=== PATIENT | female | born 1955 | race Hispanic/Latino ===

== ENCOUNTER 2020-10-30 16:33 | Emergency (ER) | payer SELFPAY ==
[~2020-10-30 16:33] MED LIST: Iopamidol 370 76% 100 ML VIAL ONE
[2020-10-30] MEDS ORDERED: Acetaminophen 500 MG TAB ONE (17:03)
[2020-10-30] MEDS ORDERED: Ondansetron ODT 4 MG TAB ONE (17:03)
[2020-10-30 17:43] LABS: #Lymphocytes 1.2 thou/uL (1.20-3.40); #Monocytes 0.2 thou/uL (0.11-0.59); #Neutrophils 6.6 thou/uL (1.40-6.50); %Basophils 0.5 % (0.0-1.0); %Eosinophils 0.1 % (0.0-10.0); %Lymphocytes 14.9 % (21.0-51.0); %Monocytes 2.4 % (0.0-10.0); %Neutrophils 82.2 % (42.0-75.0); Hemoglobin 15.9 g/dL (12.0-16.0); Mean Corpuscular HGB CONC 33.7 g/dL (32.0-36.0); Mean Corpuscular Hemoglobin 31.3 pg (27.0-31.0); Mean Corpuscular Volume 92.9 fL (78.0-98.0); Mean Platelet Volume 6.6 fL (7.4-10.4); Platelet Count 259 thou/uL (130-400); RBC Distribution Width 11.6 % (11.5-14.5); Red Blood Cell (RBC) Count 5.07 mill/uL (4.20-5.40)
[2020-10-30 18:13] LABS: ALT (SGPT) 41 U/L (8-55); AST (SGOT) 63 U/L (5-34); Albumin 4.2 g/dL (3.4-4.8); Alkaline Phosphatase 110 U/L (40-110); Anion Gap 14 mmol/L (10-20); BUN (Urea Nitrogen) 7 mg/dL (9.8-20.1); Bilirubin, Total 0.3 mg/dL (0.2-1.2); Calc. Creatinine Clearance 0 mL/min (70-130); Calcium 8.4 mg/dL (7.8-10.44); Carbon Dioxide 25 mmol/L (23-31); Chloride 96 mmol/L (98-107); Globulin 4.2 g/dL (2.4-3.5); Glucose 136 mg/dL (80-115); Lipase 101 U/L (8-78); Potassium 4.2 mmol/L (3.5-5.1); Protein, Total 8.4 g/dL (6.0-8.3); Sodium 131 mmol/L (136-145)
--- NOTE | 2020-10-30 18:57 | CT ---
CT ABDOMEN AND PELVIS PERFORMED WITH CONTRAST ENHANCEMENT: 10/30/20 HISTORY: Abdominal pain, nausea, and fever. There are some small peripheral infiltrates seen not entirely typical for but would raise the possibi lity of COVID pneumonia. There is also atelectatic changes in the lung bases. The liver, spleen, panc reas, and gallbladder regions all appear unremarkable. Right and left adrenal glands and right and left kidneys are normal in size. There is no significant periaortic adenopathy. Just slightly inferior to the level of the second to third portion of the duod enum and anterior to the IVC is a dense area of more dystrophic type calcifications. No soft tissue m ass associated with this. This is not felt to be of any acute consequence. CT OF PELVIS PERFORMED WITH CONTRAST ENHANCEMENT: The appendix region is unremarkable. No adenopathy, mass or free fluid. Review of osseous structures shows mild arthritic change of the spine. IMPRESSION: 1. Some ground glass infiltrates in both lung bases. This is suspicious for COVID pneumonia. 2. No acute abnormalities of the abdomen or pelvis. POS: OFF
[2020-10-30 19:27] LABS: Bilirubin Negative (Negative); Blood, Urine Negative (Negative); Clarity Clear (Clear); Glucose, Urine (Dipstick) Normal (Negative); Ketone, Urine Trace mg/dL (Negative); Leukocyte Negative Leu/uL (Negative); Nitrite Negative (Negative); Protein, Urine (Dipstick) Negative (Neg-Trace); Urobilinogen Normal mg/dL (Less than 2); pH, Urine 6.5 (5.0-9.0)
[2020-10-30 19:29] LABS: Specific Gravity, Urine Greater than 1.060 (1.002-1.036)
[2020-10-31 02:24] LABS: SARS-CoV-2 MS2 Positive; SARS-CoV-2 N Gene Positive; SARS-CoV-2 S Gene Positive; SARS-CoV-2 by NAA DETECTED (NotDetected); SARS-CoV-2 orf1ab Positive
== END 2020-10-30 19:45 | disposition home or self-care (01) ==
LOC: ERS 16:33 → EDBD 16:33 → ERS 19:45
DX: U07.1 COVID-19 (principal); I10 Essential (primary) hypertension; Z79.82 Long term (current) use of aspirin; Z79.899 Other long term (current) drug therapy
CPT/HCPCS: 74177; 80053; 81003; 83690; 85025; 87635; Q0162; Q9967; U0003

== ENCOUNTER 2020-11-08 17:03 | Inpatient (IN) | payer SELFPAY ==
[~2020-11-08 17:03] MED LIST changes: -Iopamidol 370 76% 100 ML VIAL ONE; +Iopamidol-370 76% 500 ML 1 ML ONE
[2020-11-08] MEDS ORDERED: Dexamethasone 10 MG/ML VIAL ONE (17:23)
[2020-11-08 18:02] LABS: #Lymphocytes 2.1 thou/uL (1.20-3.40); #Monocytes 0.4 thou/uL (0.11-0.59); #Neutrophils 8.5 thou/uL (1.40-6.50); %Basophils 0.1 % (0.0-1.0); %Eosinophils 0.3 % (0.0-10.0); %Lymphocytes 18.9 % (21.0-51.0); %Monocytes 3.3 % (0.0-10.0); %Neutrophils 77.4 % (42.0-75.0); Hemoglobin 15.1 g/dL (12.0-16.0); Mean Corpuscular HGB CONC 34.7 g/dL (32.0-36.0); Mean Corpuscular Hemoglobin 31.8 pg (27.0-31.0); Mean Corpuscular Volume 91.6 fL (78.0-98.0); Mean Platelet Volume 6.1 fL (7.4-10.4); Platelet Count 675 thou/uL (130-400); RBC Distribution Width 11.6 % (11.5-14.5); Red Blood Cell (RBC) Count 4.76 mill/uL (4.20-5.40)
--- NOTE | 2020-11-08 18:12 | RAD ---
XR Chest 1 View Portable HISTORY: Cough, shortness of breath COMPARISON: None FINDINGS: The heart size normal. The lungs are hypoexpanded with patchy ill-defined opacities bilater ally, right greater than left. No pneumothoraces or pleural effusions are seen. IMPRESSION: Possibility of COVID 19 pneumonia should be considered.
[2020-11-08 18:23] LABS: ALT (SGPT) 40 U/L (8-55); AST (SGOT) 59 U/L (5-34); Albumin 3.5 g/dL (3.4-4.8); Alkaline Phosphatase 92 U/L (40-110); Anion Gap 16 mmol/L (10-20); BUN (Urea Nitrogen) 7 mg/dL (9.8-20.1); Bilirubin, Total 0.6 mg/dL (0.2-1.2); Calc. Creatinine Clearance 0 mL/min (70-130); Carbon Dioxide 26 mmol/L (23-31); Chloride 96 mmol/L (98-107); Globulin 3.4 g/dL (2.4-3.5); Glucose 164 mg/dL (80-115); Potassium 4.2 mmol/L (3.5-5.1); Protein, Total 6.9 g/dL (6.0-8.3); Sodium 134 mmol/L (136-145)
[2020-11-08 20:58] LABS: Bilirubin Negative (Negative); Blood, Urine Negative (Negative); Clarity Clear (Clear); Glucose, Urine (Dipstick) Normal (Negative); Ketone, Urine Negative (Negative); Leukocyte Negative Leu/uL (Negative); Nitrite Negative (Negative); Protein, Urine (Dipstick) Negative (Neg-Trace); Specific Gravity, Urine 1.032 (1.002-1.036); Urobilinogen Normal mg/dL (Less than 2); pH, Urine 7.5 (5.0-9.0)
--- NOTE | 2020-11-08 21:08 | CT ---
CT ABDOMEN AND PELVIS WITH IV CONTRAST: History: Epigastric pain. Nausea. Comparison: 10-30-2020 FINDINGS: There has been interval worsening of patchy ground glass opacities and consolidation in the visualize d lower lung porras since the previous study. No calcified gallstones are seen. The liver, spleen, pancreas, adrenal glands, kidneys are normal. No free air, free fluid, or lymphadenopathy is seen in the abdomen or pelvis. The dystrophic calcificat ions in the right paracaval region inferior to the right kidney is stable. There are vascular calcifi cations without evidence of aneurysmal dilatation or the abdominal aorta. The uterus is present. Mild arthritic changes in the spine are redemonstrated. A normal appearing appendix is seen. The small bowel loops are not abnormally dilated. There is mild colonic diverticulosis without diverticulitis. IMPRESSION: 1. Interval worsening of pneumonia (likely Covid-19). 2. No evidence of acute process in the abdomen or pelvis. POS: OFF
[2020-11-08 21:29] LABS: Lactic Acid 1.5 mmol/L (0.5-2.2)
--- NOTE | 2020-11-08 22:24 | PDOC.HHP ---
Hospitalist HPI - History of Present Illness Shortness of breath History of Present Illness: This is a 65-year-old female patient with a history of hypertension who presents with ongoing shortness of breath and abdominal pain for about a week. She was diagnosed Covid positive on 10/30/2020. She is [place]-speaking and required a telemetry project asst. Of note patient was seen here on 10/30/2020 after having 2 days of abdominal pain nausea vomiting and fever with loss of appetite and taste. She had 2 family members diagnosed with Covid positive. On the day she was also positive. She was however managed in discharge from the ED with supportive care to follow-up with PCP. Since going home however she has had worsening cough and progressive shortness of breath as well as abdominal pain which has not been resolving. She returned today complaining of abdominal pain and cough which would not cease. At presentation her blood pressure was 124/84, respiratory rate 28, pulse 84, saturating 93% on 3 L oxygen. She eventually desaturated and required high flow oxygen to maintain his saturation. He had labs showed leukocytosis of 11.0, no bands, globin 15.1 and platelets 6/5. She had a mild hyponatremia of 134, lactate 2.3. Chest x-ray showed patchy ill-defined opacities bilaterally consistent with Covid. Abdominal CT showed no evidence of acute abdominal or pelvic processes. She received dexamethasone and 1 L normal saline. Hospitalist team was consulted to admit Hospitalist ROS - Review of Systems Constitutional: reports: fever, weakness, malaise. denies: chills, sweats Respiratory: reports: cough, shortness of breath, SOB with excertion. denies: hemoptysis Cardiovascular: denies: chest pain, palpitations, orthopnea, paroxysmal noc. dyspnea Gastrointestinal: reports: abdominal pain. denies: nausea, vomiting, diarrhea Genitourinary: denies: dysuria, frequency, incontinence, hematuria Musculoskeletal: denies: neck pain, shoulder pain Neurological: denies: weakness, numbness, incoordination All other systems reviewed; all pertinent +/- noted in HPI/Subj - Medication Medications: Medications: Currently refer to ambulatory list. Allergies: Penicillin Hospitalist History - Past Medical History Cardiac: reports: HTN - Past Surgical History Past Surgical History: reports: - Family History Family History: reports: no pertinent history - Social History Smoking Status: Never smoker Alcohol: reports: None Living Situation: With Family - Exam General Appearance: awake alert General - other findings: In bed, intermittent coughing. Eye: PERRL, anicteric sclera Heart: RRR, no murmur, no gallops, no rubs Respiratory: wheezes Respiratory - other findings: Adequate air entry bilaterally. On high flow nasal cannula Gastrointestinal: soft, non-tender, non-distended, normal bowel sounds Extremities: no cyanosis, no clubbing, no edema Neurological: cranial nerve grossly intact, no focal deficits Psychiatric: normal affect, normal behavior, A&O x 3 Hospitalist Results - Labs Result Diagrams: 11/08/20 17:24 11/08/20 17:24 Lab results: WBC 11.0 thou/uL (4.8-10.8) H 11/08/20 17:24 Hgb 15.1 g/dL (12.0-16.0) 11/08/20 17:24 Hct 43.6 % (36.0-47.0) 11/08/20 17:24 MCV 91.6 fL (78.0-98.0) 11/08/20 17:24 Plt Count 675 thou/uL (130-400) H 11/08/20 17:24 Neutrophils % 77.4 % (42.0-75.0) H 11/08/20 17:24 Sodium 134 mmol/L (136-145) L 11/08/20 17:24 Potassium 4.2 mmol/L (3.5-5.1) 11/08/20 17:24 Chloride 96 mmol/L (98-107) L 11/08/20 17:24 Carbon Dioxide 26 mmol/L (23-31) 11/08/20 17:24 BUN 7 mg/dL (9.8-20.1) L 11/08/20 17:24 Creatinine 0.62 mg/dL (0.6-1.1) 11/08/20 17:24 Glucose 164 mg/dL (80-115) H 11/08/20 17:24 Lactic Acid 1.5 mmol/L (0.5-2.2) 11/08/20 20:53 Calcium 8.0 mg/dL (7.8-10.44) 11/08/20 17:24 Total Bilirubin 0.6 mg/dL (0.2-1.2) 11/08/20 17:24 AST 59 U/L (5-34) H 11/08/20 17:24 ALT 40 U/L (8-55) 11/08/20 17:24 Alkaline Phosphatase 92 U/L (40-110) 11/08/20 17:24 C-Reactive Protein 6.50 mg/dL (= or < 0.5) H 11/08/20 17:24 Serum Total Protein 6.9 g/dL (6.0-8.3) 11/08/20 17:24 Albumin 3.5 g/dL (3.4-4.8) 11/08/20 17:24 Lipase 140 U/L (8-78) H 11/08/20 17:24 Urine Ketones Negative mg/dL (Negative) 11/08/20 20:43 Urine Blood Negative (Negative) 11/08/20 20:43 Urine Nitrite Negative (Negative) 11/08/20 20:43 Ur Leukocyte Esterase Negative Jose/uL (Negative) 11/08/20 20:43 Hospitalist H&P A/P - Plan Plan: This is a 65-year-old female patient history of hypertension diagnosed Covid about 10 days ago presenting with worsening shortness of breath, acute hypoxic respiratory failure and abdominal pain. Acute hypoxic respiratory failure Likely secondary to Covid pneumonia Oxygen therapy as needed Pneumonia due to Covid Start vitamin C and zinc Steroids Likely out of the window for remdesivir Consider convalescent plasma in a.m. Check D-dimer, CRP and ferritin Possible ID consult. Abdominal pain No etiology at the moment Lipase slightly elevated however no CT evidence of pancreatitis Examination also not suggestive We will continue monitoring. Lactic acidosis Lactate 2.3 reduce to 1.5 Possibly due to hypoxemia No clear indication of sepsis at the moment Blood cultures drawn however no antibiotics are started Monitor VT prophylaxisLovenox CODE STATUSfull
[2020-11-08 23:07] LABS: Lactic Acid 1.2 mmol/L (0.5-2.2)
[2020-11-09 02:00] VITALS: BMI 25.0
[2020-11-09] MEDS ORDERED: Enoxaparin Sodium 40 MG/0.4 ML SYRINGE SC SCH ×2 (02:15→09:00)
[2020-11-09 06:34] LABS: #Lymphocytes 1.6 thou/uL (1.20-3.40); #Monocytes 0.2 thou/uL (0.11-0.59); #Neutrophils 5.6 thou/uL (1.40-6.50); %Basophils 0.1 % (0.0-1.0); %Eosinophils 0.1 % (0.0-10.0); %Lymphocytes 21.2 % (21.0-51.0); %Monocytes 2.8 % (0.0-10.0); %Neutrophils 75.8 % (42.0-75.0); Hemoglobin 13.6 g/dL (12.0-16.0); Mean Corpuscular HGB CONC 33.5 g/dL (32.0-36.0); Mean Corpuscular Hemoglobin 30.5 pg (27.0-31.0); Platelet Count 646 thou/uL (130-400); RBC Distribution Width 11.4 % (11.5-14.5); Red Blood Cell (RBC) Count 4.44 mill/uL (4.20-5.40); White Blood Cell (WBC) Count 7.4 thou/uL (4.8-10.8)
[2020-11-09 06:51] LABS: Anion Gap 15 mmol/L (10-20); BUN (Urea Nitrogen) 7 mg/dL (9.8-20.1); Calc. Creatinine Clearance 93 mL/min (70-130); Calcium 8.4 mg/dL (7.8-10.44); Carbon Dioxide 22 mmol/L (23-31); Chloride 102 mmol/L (98-107); Glucose 128 mg/dL (80-115); Sodium 135 mmol/L (136-145)
[2020-11-09] MEDS: Dexamethasone 4 mg/ml Vial SLOW IVP SCH (08:28)
[2020-11-09] MEDS: Cholecalciferol (Vitamin D3) 400 UNITS TAB PO SCH (08:28)
[2020-11-09] MEDS: Ascorbic Acid 500 mg Chewable Tablet PO SCH (08:28)
[2020-11-09] MEDS: Guaifenesin DM 100-10/5 ML UDCUP PO PRN ×2 (11:53→21:08)
--- NOTE | 2020-11-09 14:07 | PDOC.HOSPP ---
- Subjective Encounter Date: 11/09/20 Encounter Time: 14:06 Subjective: Patient is a 65-year-old female who was admitted to the hospital for worsening respiratory symptoms. She was diagnosed with COVID-19 pneumonia about 10 days ago. Prior to that she was sick for about a week. She has multiple family members that was diagnosed with Covid recently. She was observed in the emergency room on the eighth of this month and discharged home but she started feeling poorly prompting her to come back to the hospital. She is on high flow today when I arrived to visit with her. She is [id number] and I did use the [employer] [facility] to discuss with her. She does not meet criteria for rem desivir. We will give her convalescent plasma. She will continue on the high flow nasal cannula and wean off as tolerated. - Objective Vital Signs & Weight: Vital Signs (12 hours) Temp Pulse Resp BP BP Pulse Ox 11/09/20 12:30 98.0 F 84 16 97/60 94 L 11/09/20 10:55 22 H 92 L 11/09/20 09:30 97.7 F 89 35 H 105/67 88 L 11/09/20 08:00 91 L 11/09/20 04:00 97.6 F 83 20 116/72 91 L 11/09/20 02:18 98.3 F 89 20 114/73 92 L Weight Weight 120 lb Result Diagrams: 11/09/20 06:09 11/09/20 06:09 Radiology Reviewed by me: Yes EKG Reviewed by me: Yes Hospitalist ROS - Review of Systems Constitutional: reports: weakness, malaise Gastrointestinal: reports: nausea Neurological: reports: weakness - Medication Medications: Active Medications Generic Name Dose Route Start Last Admin Trade Name Michealq PRN Reason Stop Dose Admin Ascorbic Acid 1,000 mg 11/09/20 09:00 11/09/20 08:28 Ascorbic Acid 500 Mg Chewable Tablet PO 1,000 mg DAILY DILSHAD Administration Cholecalciferol 400 units 11/09/20 09:00 11/09/20 08:28 Cholecalciferol (Vitamin D3) 400 Units Tab PO 400 units DAILY DILSHAD Administration Dexamethasone 8 mg 11/09/20 09:00 11/09/20 08:28 Dexamethasone 4 Mg/Ml Vial SLOW IVP 8 mg DAILY DILSHAD Administration Guaifenesin/Dextromethorphan 15 ml 11/09/20 11:01 11/09/20 11:53 Guaifenesin Dm 100-10/5 Ml Udcup PO 15 ml Q4H PRN Administration Cough - Exam General Appearance: awake alert, ill appearing Eye: PERRL, anicteric sclera ENT: normocephalic atraumatic, no oropharyngeal lesions Neck: supple, symmetric, no JVD Heart: RRR, no murmur, no gallops, no rubs Respiratory: CTAB, no wheezes, no rales, no ronchi, normal chest expansion Gastrointestinal: soft, non-tender, non-distended, normal bowel sounds Psychiatric: normal affect, normal behavior, A&O x 3 Hosp A/P (1) Acute respiratory failure with hypoxia Code(s): J96.01 - ACUTE RESPIRATORY FAILURE WITH HYPOXIA Status: Acute (2) Pneumonia due to COVID-19 virus Code(s): U07.1 - COVID-19; J12.82 - PNEUMONIA DUE TO CORONAVIRUS DISEASE 2019 Status: Acute - Plan 11/09/2020. Patient is admitted with COVID-19 pneumonia complicated by respiratory failure. We will continue supportive care with high flow nasal cannula. She is on steroid which I will continue as well. We will give her a dose of convalescent plasma. She does not meet criteria for remdesivir.
[2020-11-09] MEDS: Enoxaparin Sodium 40 MG/0.4 ML SYRINGE SC SCH (20:16)
[2020-11-10 06:51] LABS: #Lymphocytes 2.4 thou/uL (1.20-3.40); #Monocytes 0.8 thou/uL (0.11-0.59); #Neutrophils 9.8 thou/uL (1.40-6.50); %Eosinophils 0.1 % (0.0-10.0); %Lymphocytes 18.6 % (21.0-51.0); %Monocytes 6.4 % (0.0-10.0); %Neutrophils 74.9 % (42.0-75.0); Hemoglobin 13.7 g/dL (12.0-16.0); Mean Corpuscular HGB CONC 34.4 g/dL (32.0-36.0); Mean Corpuscular Hemoglobin 31.5 pg (27.0-31.0); Mean Corpuscular Volume 91.6 fL (78.0-98.0); Platelet Count 753 thou/uL (130-400); RBC Distribution Width 11.4 % (11.5-14.5); Red Blood Cell (RBC) Count 4.34 mill/uL (4.20-5.40)
[2020-11-10 07:06] LABS: Anion Gap 16 mmol/L (10-20); BUN (Urea Nitrogen) 11 mg/dL (9.8-20.1); Calc. Creatinine Clearance 88 mL/min (70-130); Calcium 8.6 mg/dL (7.8-10.44); Carbon Dioxide 23 mmol/L (23-31); Chloride 104 mmol/L (98-107); Glucose 91 mg/dL (80-115); Potassium 3.5 mmol/L (3.5-5.1); Sodium 139 mmol/L (136-145)
[2020-11-10] MEDS: Dexamethasone 4 mg/ml Vial SLOW IVP SCH (08:20)
[2020-11-10] MEDS: Enoxaparin Sodium 40 MG/0.4 ML SYRINGE SC SCH ×2 (08:21→21:17)
[2020-11-10] MEDS: Cholecalciferol (Vitamin D3) 400 UNITS TAB PO SCH (08:21)
[2020-11-10] MEDS: Ascorbic Acid 500 mg Chewable Tablet PO SCH (08:21)
[2020-11-10] MEDS: Guaifenesin DM 100-10/5 ML UDCUP PO PRN ×2 (10:55→16:57)
[2020-11-10] MEDS ORDERED: Azithromycin 250 MG TAB PO SCH (14:15)
--- NOTE | 2020-11-10 14:16 | PDOC.HOSPP ---
- Subjective Encounter Date: 11/10/20 Encounter Time: 14:12 Subjective: I saw and evaluated Ms. Israel today at the bedside. Is Sinhala-speaking woman with COVID-19 pneumonia was admitted for worsening respiratory failure. She remains on high flow nasal cannula and seems to be doing relatively well. She is having more mucopurulent sputum with her cough today. I will send her sputum for Gram stain and culture. I am going to start her on doxycycline and azithromycin. She did receive convalescent plasma but she is out of the window for remdesivir. - Objective Vital Signs & Weight: Vital Signs (12 hours) Temp Pulse Resp BP BP Pulse Ox 11/10/20 12:32 97.8 F 71 22 H 113/72 98 11/10/20 11:24 92 L 11/10/20 11:05 20 98 11/10/20 08:20 20 94 L 11/10/20 08:00 98.2 F 79 24 H 102/67 88 L 11/10/20 05:47 97.7 F 72 18 118/69 95 Weight Weight 120 lb I&O: 11/09/20 11/10/20 11/11/20 06:59 06:59 06:59 Intake Total 240 Output Total 700 Balance -460 Result Diagrams: 11/10/20 05:59 11/10/20 05:59 Radiology Reviewed by me: Yes EKG Reviewed by me: Yes Hospitalist ROS - Review of Systems Constitutional: reports: sweats, weakness Respiratory: reports: cough, shortness of breath, SOB with excertion, sputum Gastrointestinal: reports: nausea - Medication Medications: Active Medications Generic Name Dose Route Start Last Admin Trade Name Melody PRN Reason Stop Dose Admin Ascorbic Acid 1,000 mg 11/09/20 09:00 11/10/20 08:21 Ascorbic Acid 500 Mg Chewable Tablet PO 1,000 mg DAILY DILSHAD Administration Cholecalciferol 400 units 11/09/20 09:00 11/10/20 08:21 Cholecalciferol (Vitamin D3) 400 Units Tab PO 400 units DAILY DILSHAD Administration Dexamethasone 8 mg 11/09/20 09:00 11/10/20 08:20 Dexamethasone 4 Mg/Ml Vial SLOW IVP 8 mg DAILY DILSHAD Administration Enoxaparin Sodium 40 mg 11/09/20 21:00 11/10/20 08:21 Enoxaparin Sodium 40 Mg/0.4 Ml Syringe SC 40 mg 0900,2100 DILSHAD Administration Guaifenesin/Dextromethorphan 15 ml 11/09/20 11:01 11/10/20 10:55 Guaifenesin Dm 100-10/5 Ml Udcup PO 15 ml Q4H PRN Administration Cough - Exam General Appearance: NAD, awake alert, ill appearing Eye: PERRL, anicteric sclera ENT: normocephalic atraumatic, no oropharyngeal lesions Neck: supple, symmetric, no JVD, no thyromegaly, no lymphadenopathy Heart: RRR, no murmur, no gallops, no rubs, normal peripheral pulses Respiratory: CTAB, no wheezes, no rales, no ronchi, normal chest expansion Gastrointestinal: soft, non-tender, non-distended, normal bowel sounds Neurological: cranial nerve grossly intact, normal sensation to touch Psychiatric: normal affect, normal behavior, A&O x 3 Hosp A/P (1) Acute respiratory failure with hypoxia Code(s): J96.01 - ACUTE RESPIRATORY FAILURE WITH HYPOXIA Status: Acute (2) Pneumonia due to COVID-19 virus Code(s): U07.1 - COVID-19; J12.82 - PNEUMONIA DUE TO CORONAVIRUS DISEASE 2019 Status: Acute - Plan old records reviewed/req, plan discussed w/ family, continue antibiotics, PT/OT, respiratory therapy, incentive spirometry 11/09/2020. Patient is admitted with COVID-19 pneumonia complicated by respiratory failure. We will continue supportive care with high flow nasal cannula. She is on steroid which I will continue as well. We will give her a dose of convalescent plasma. She does not meet criteria for remdesivir. 11/10/2020. Patient with COVID-19 pneumonia complicated by respiratory failure. She did receive convalescent plasma but was out of the window for remdesivir. I have started her on antibiotics and will send her sputum for culture and Gram stain.
[2020-11-11 06:15] LABS: #Basophils 0.1 thou/uL (0.0-0.2); #Lymphocytes 3.2 thou/uL (1.20-3.40); #Monocytes 0.8 thou/uL (0.11-0.59); %Eosinophils 0.1 % (0.0-10.0); %Lymphocytes 22.4 % (21.0-51.0); %Monocytes 5.7 % (0.0-10.0); %Neutrophils 70.8 % (42.0-75.0); Hemoglobin 14.1 g/dL (12.0-16.0); Mean Corpuscular Hemoglobin 30.9 pg (27.0-31.0); Mean Corpuscular Volume 90.6 fL (78.0-98.0); Mean Platelet Volume 5.6 fL (7.4-10.4); Platelet Count 823 thou/uL (130-400); RBC Distribution Width 11.6 % (11.5-14.5); Red Blood Cell (RBC) Count 4.58 mill/uL (4.20-5.40); White Blood Cell (WBC) Count 14.1 thou/uL (4.8-10.8)
[2020-11-11 06:49] LABS: Anion Gap 13 mmol/L (10-20); BUN (Urea Nitrogen) 13 mg/dL (9.8-20.1); Calc. Creatinine Clearance 88 mL/min (70-130); Calcium 8.5 mg/dL (7.8-10.44); Carbon Dioxide 24 mmol/L (23-31); Chloride 104 mmol/L (98-107); Glucose 77 mg/dL (80-115); Magnesium 2.3 mg/dL (1.6-2.6); Potassium 3.7 mmol/L (3.5-5.1); Sodium 137 mmol/L (136-145)
[2020-11-11] MEDS: Dexamethasone 4 mg/ml Vial SLOW IVP SCH (08:19)
[2020-11-11] MEDS: Cholecalciferol (Vitamin D3) 400 UNITS TAB PO SCH (08:19)
[2020-11-11] MEDS: Enoxaparin Sodium 40 MG/0.4 ML SYRINGE SC SCH ×2 (08:19→20:58)
[2020-11-11] MEDS: Ascorbic Acid 500 mg Chewable Tablet PO SCH (08:19)
[2020-11-11] MEDS: Levothyroxine Sodium 100 MCG TAB PO SCH ×2 (08:20→09:47)
[2020-11-11] MEDS: Zinc Sulfate 220 MG CAP PO SCH (08:21)
[2020-11-11] MEDS: Guaifenesin DM 100-10/5 ML UDCUP PO PRN ×2 (08:23→16:55)
--- NOTE | 2020-11-11 11:57 | PDOC.HOSPP ---
- Subjective Encounter Date: 11/11/20 Encounter Time: 11:54 Subjective: Ms. Israel remains on high flow nasal cannula. She said that she is doing a little bit better today. She was diagnosed with COVID-19 pneumonia. She was not a candidate for remdesivir when she was admitted. She did receive convalescent plasma. We will begin to wean him down on the high flow nasal cannula. - Objective Vital Signs & Weight: Vital Signs (12 hours) Temp Pulse Resp BP BP Pulse Ox 11/11/20 11:00 92 L 11/11/20 07:54 97.7 F 78 17 129/77 92 L 11/11/20 06:12 97.5 F L 69 18 112/71 94 L 11/11/20 01:31 97.7 F 69 18 124/77 94 L Weight Weight 120 lb I&O: 11/10/20 11/11/20 11/12/20 06:59 06:59 06:59 Intake Total 240 Output Total 700 Balance -460 Result Diagrams: 11/11/20 06:04 11/11/20 06:04 Radiology Reviewed by me: Yes EKG Reviewed by me: Yes Hospitalist ROS - Review of Systems Constitutional: reports: weakness, malaise Respiratory: reports: shortness of breath, SOB with excertion Gastrointestinal: reports: nausea Neurological: reports: weakness - Medication Medications: Active Medications Generic Name Dose Route Start Last Admin Trade Name Freq PRN Reason Stop Dose Admin Ascorbic Acid 1,000 mg 11/09/20 09:00 11/11/20 08:19 Ascorbic Acid 500 Mg Chewable Tablet PO 1,000 mg DAILY DILSHAD Administration Cholecalciferol 400 units 11/09/20 09:00 11/11/20 08:19 Cholecalciferol (Vitamin D3) 400 Units Tab PO 400 units DAILY DILSHAD Administration Dexamethasone 8 mg 11/09/20 09:00 11/11/20 08:19 Dexamethasone 4 Mg/Ml Vial SLOW IVP 8 mg DAILY DILSHAD Administration Enoxaparin Sodium 40 mg 11/09/20 21:00 11/11/20 08:19 Enoxaparin Sodium 40 Mg/0.4 Ml Syringe SC 40 mg 0900,2100 DILSHAD Administration Guaifenesin/Dextromethorphan 15 ml 11/09/20 11:01 11/11/20 08:23 Guaifenesin Dm 100-10/5 Ml Udcup PO 15 ml Q4H PRN Administration Cough Doxycycline Hyclate 100 mg/ 100 mls @ 100 mls/hr 11/10/20 15:00 11/11/20 04:01 Sodium Chloride IVPB 100 mls 0300,1500 DILSHAD Administration Levothyroxine Sodium 200 mcg 11/11/20 07:30 11/11/20 09:47 Levothyroxine Sodium 100 Mcg Tab PO Not Given DAILY-AC DILSHAD Sodium Chloride 10 ml 11/11/20 09:00 11/11/20 08:20 Flush - Normal Saline 10 Ml Syringe IVF 10 ml Q12HR DILSHAD Administration Zinc Sulfate 220 mg 11/11/20 09:00 11/11/20 08:21 Zinc Sulfate 220 Mg Cap PO 220 mg DAILY DILSHAD Administration - Exam General Appearance: awake alert, ill appearing Eye: PERRL, anicteric sclera ENT: normocephalic atraumatic, no oropharyngeal lesions Neck: supple, symmetric, no JVD, no thyromegaly Heart: RRR, no murmur, no gallops, no rubs, normal peripheral pulses Respiratory: no rales, normal chest expansion, normal percussion, rales, rhonchi, wheezes Gastrointestinal: soft, non-tender, non-distended, normal bowel sounds Neurological: cranial nerve grossly intact, normal sensation to touch Psychiatric: normal affect, normal behavior, A&O x 3 Hosp A/P (1) Acute respiratory failure with hypoxia Code(s): J96.01 - ACUTE RESPIRATORY FAILURE WITH HYPOXIA Status: Acute (2) Pneumonia due to COVID-19 virus Code(s): U07.1 - COVID-19; J12.82 - PNEUMONIA DUE TO CORONAVIRUS DISEASE 2019 Status: Acute - Plan 11/09/2020. Patient is admitted with COVID-19 pneumonia complicated by respiratory failure. We will continue supportive care with high flow nasal cannula. She is on steroid which I will continue as well. We will give her a dose of convalescent plasma. She does not meet criteria for remdesivir. 11/10/2020. Patient with COVID-19 pneumonia complicated by respiratory failure. She did receive convalescent plasma but was out of the window for remdesivir. I have started her on antibiotics and will send her sputum for culture and Gram stain. 11/11/2020. We will begin to wean her down on the high flow nasal cannula. Continue current care.
[2020-11-12 06:18] LABS: Anion Gap 16 mmol/L (10-20); BUN (Urea Nitrogen) 13 mg/dL (9.8-20.1); Calc. Creatinine Clearance 80 mL/min (70-130); Calcium 8.6 mg/dL (7.8-10.44); Carbon Dioxide 20 mmol/L (23-31); Chloride 105 mmol/L (98-107); Glucose 93 mg/dL (80-115); Potassium 3.6 mmol/L (3.5-5.1); Sodium 137 mmol/L (136-145)
[2020-11-12 06:43] LABS: #Lymphocytes 2.8 thou/uL (1.20-3.40); #Monocytes 1.1 thou/uL (0.11-0.59); #Neutrophils 8.5 thou/uL (1.40-6.50); %Basophils 0.2 % (0.0-1.0); %Eosinophils 0.1 % (0.0-10.0); %Lymphocytes 22.5 % (21.0-51.0); %Monocytes 8.7 % (0.0-10.0); %Neutrophils 68.5 % (42.0-75.0); Hemoglobin 14.9 g/dL (12.0-16.0); Mean Corpuscular HGB CONC 33.5 g/dL (32.0-36.0); Mean Corpuscular Hemoglobin 30.4 pg (27.0-31.0); Mean Corpuscular Volume 90.8 fL (78.0-98.0); Mean Platelet Volume 5.6 fL (7.4-10.4); Platelet Count 882 thou/uL (130-400); RBC Distribution Width 11.9 % (11.5-14.5); Red Blood Cell (RBC) Count 4.88 mill/uL (4.20-5.40); White Blood Cell (WBC) Count 12.4 thou/uL (4.8-10.8)
[2020-11-12] MEDS ORDERED: Non-Formulary Item 1 EACH (Levothyroxine Sodium [Synthroid] 200 MCG Tablet) PO SCH (07:30)
[2020-11-12] MEDS: Ascorbic Acid 500 mg Chewable Tablet PO SCH (07:47)
[2020-11-12] MEDS: Cholecalciferol (Vitamin D3) 400 UNITS TAB PO SCH (07:47)
[2020-11-12] MEDS: Zinc Sulfate 220 MG CAP PO SCH (07:47)
--- NOTE | 2020-11-12 07:47 | RAD ---
Chest one view HISTORY: Dyspnea. Follow-up. COMPARISON: 11/08/2020. FINDINGS: Cardiac silhouette is magnified by projection. Shallow inspiration accentuates pulmonary ma rkings. Mediastinum is midline. Patchy groundglass infiltrate along the periphery of the right lung and left lung base are similar in appearance to the prior study. Linear atelectasis projects over the right lung base. No evidence of pneumothorax. IMPRESSION : Multifocal infiltrates and other findings are stable.
[2020-11-12] MEDS: Enoxaparin Sodium 40 MG/0.4 ML SYRINGE SC SCH ×2 (07:48→20:39)
[2020-11-12] MEDS: Dexamethasone 4 mg/ml Vial SLOW IVP SCH ×2 (07:48→10:50)
--- NOTE | 2020-11-12 14:36 | PDOC.HOSPP ---
- Subjective Encounter Date: 11/12/20 Encounter Time: 14:34 Subjective: Patient seen and evaluated. She seems to be doing better. She does still get dyspneic with conversation and changing position in the bed. I do not believe she is ready to wean from the high flow yet but we will continue this for now. Her prognosis remains guarded. - Objective Vital Signs & Weight: Vital Signs (12 hours) Temp Pulse Resp BP BP Pulse Ox 11/12/20 12:00 98.3 F 84 15 106/71 94 L 11/12/20 08:12 88 L 11/12/20 08:00 98.1 F 89 24 H 93/60 93 L 11/12/20 05:50 97.6 F 78 18 111/74 94 L Weight Weight 120 lb I&O: 11/11/20 11/12/20 11/13/20 06:59 06:59 06:59 Output Total 140 Balance -140 Result Diagrams: 11/12/20 05:24 11/12/20 05:24 Radiology Reviewed by me: Yes EKG Reviewed by me: Yes Hospitalist ROS - Review of Systems Constitutional: reports: weakness, malaise Gastrointestinal: reports: nausea Neurological: reports: weakness - Medication Medications: Active Medications Generic Name Dose Route Start Last Admin Trade Name Freq PRN Reason Stop Dose Admin Ascorbic Acid 1,000 mg 11/09/20 09:00 11/12/20 07:47 Ascorbic Acid 500 Mg Chewable Tablet PO 1,000 mg DAILY DILSHAD Administration Cholecalciferol 400 units 11/09/20 09:00 11/12/20 07:47 Cholecalciferol (Vitamin D3) 400 Units Tab PO 400 units DAILY DILSHAD Administration Dexamethasone 8 mg 11/09/20 09:00 11/12/20 10:50 Dexamethasone 4 Mg/Ml Vial SLOW IVP 8 mg DAILY DILSHAD Administration Enoxaparin Sodium 40 mg 11/09/20 21:00 11/12/20 07:48 Enoxaparin Sodium 40 Mg/0.4 Ml Syringe SC 40 mg 0900,2100 DILSHAD Administration Guaifenesin/Dextromethorphan 15 ml 11/09/20 11:01 11/11/20 16:55 Guaifenesin Dm 100-10/5 Ml Udcup PO 15 ml Q4H PRN Administration Cough Doxycycline Hyclate 100 mg/ 100 mls @ 100 mls/hr 11/10/20 15:00 11/12/20 14:25 Sodium Chloride IVPB 100 mls 0300,1500 DILSHAD Administration Sodium Chloride 10 ml 11/11/20 09:00 11/12/20 07:48 Flush - Normal Saline 10 Ml Syringe IVF 10 ml Q12HR DILSHAD Administration Zinc Sulfate 220 mg 11/11/20 09:00 11/12/20 07:47 Zinc Sulfate 220 Mg Cap PO 220 mg DAILY DILSHAD Administration - Exam General Appearance: NAD, awake alert Eye: PERRL, anicteric sclera ENT: normocephalic atraumatic, no oropharyngeal lesions Neck: supple, symmetric, no JVD Heart: RRR, no murmur, no gallops, no rubs Respiratory: wheezes Gastrointestinal: soft, non-tender, non-distended, normal bowel sounds Neurological: cranial nerve grossly intact, normal sensation to touch, no focal deficits Psychiatric: normal affect, normal behavior, A&O x 3 Hosp A/P (1) Acute respiratory failure with hypoxia Code(s): J96.01 - ACUTE RESPIRATORY FAILURE WITH HYPOXIA Status: Acute (2) Pneumonia due to COVID-19 virus Code(s): U07.1 - COVID-19; J12.82 - PNEUMONIA DUE TO CORONAVIRUS DISEASE 2019 Status: Acute - Plan old records reviewed/req, PT/OT, respiratory therapy, incentive spirometry 11/09/2020. Patient is admitted with COVID-19 pneumonia complicated by respiratory failure. We will continue supportive care with high flow nasal cannula. She is on steroid which I will continue as well. We will give her a dose of convalescent plasma. She does not meet criteria for remdesivir. 11/10/2020. Patient with COVID-19 pneumonia complicated by respiratory failure. She did receive convalescent plasma but was out of the window for remdesivir. I have started her on antibiotics and will send her sputum for culture and Gram stain. 11/11/2020. We will begin to wean her down on the high flow nasal cannula. Continue current care. 11/12/2020. Ms. Israel remains on a high flow. She does still get dyspneic even with changing position in bed and with conversation. We will likely still live on a high flow as I do not think she will be ready to wean down today. We will continue supportive care for now. We will continue current antibiotics, steroids, vitamin C and zinc sulfate.
[2020-11-13] MEDS: Ascorbic Acid 500 mg Chewable Tablet PO SCH (08:35)
[2020-11-13] MEDS: Cholecalciferol (Vitamin D3) 400 UNITS TAB PO SCH (08:35)
[2020-11-13] MEDS: Enoxaparin Sodium 40 MG/0.4 ML SYRINGE SC SCH ×2 (08:36→20:35)
[2020-11-13] MEDS: Dexamethasone 4 mg/ml Vial SLOW IVP SCH (08:36)
[2020-11-13] MEDS: Zinc Sulfate 220 MG CAP PO SCH (08:36)
--- NOTE | 2020-11-13 13:40 | PDOC.HOSPP ---
- Subjective Encounter Date: 11/13/20 Encounter Time: 13:38 Subjective: Ms. Israel is a [place]inamese-speaking woman who is hospitalized with COVID-19 pneumonia. She is on high flow nasal cannula and is tolerating this so far. Her main complaint today appears to be reflux symptoms. I have added Pepcid to help with control. She is slowly being weaned off of the high flow. We will continue this for now and hopefully she can be weaned off within the next 48 hours. - Objective Vital Signs & Weight: Vital Signs (12 hours) Temp Pulse Resp BP Pulse Ox 11/13/20 12:14 98.2 F 85 15 108/68 99 11/13/20 08:05 98.4 F 93 14 103/67 89 L 11/13/20 07:30 90 L Weight Weight 120 lb I&O: 11/12/20 11/13/20 11/14/20 06:59 06:59 06:59 Intake Total 100 Output Total 140 Balance -140 100 Result Diagrams: 11/12/20 05:24 11/12/20 05:24 Radiology Reviewed by me: Yes EKG Reviewed by me: Yes Hospitalist ROS - Review of Systems ROS unobtainable: due to mental status Constitutional: reports: weakness, malaise Respiratory: reports: shortness of breath, SOB with excertion Neurological: reports: weakness - Medication Medications: Active Medications Generic Name Dose Route Start Last Admin Trade Name Melody PRN Reason Stop Dose Admin Ascorbic Acid 1,000 mg 11/09/20 09:00 11/13/20 08:35 Ascorbic Acid 500 Mg Chewable Tablet PO 1,000 mg DAILY DILSHAD Administration Cholecalciferol 400 units 11/09/20 09:00 11/13/20 08:35 Cholecalciferol (Vitamin D3) 400 Units Tab PO 400 units DAILY DILSHAD Administration Dexamethasone 8 mg 11/09/20 09:00 11/13/20 08:36 Dexamethasone 4 Mg/Ml Vial SLOW IVP 8 mg DAILY DILSHAD Administration Enoxaparin Sodium 40 mg 11/09/20 21:00 11/13/20 08:36 Enoxaparin Sodium 40 Mg/0.4 Ml Syringe SC 40 mg 0900,2100 DILSHAD Administration Guaifenesin/Dextromethorphan 15 ml 11/09/20 11:01 11/11/20 16:55 Guaifenesin Dm 100-10/5 Ml Udcup PO 15 ml Q4H PRN Administration Cough Doxycycline Hyclate 100 mg/ 100 mls @ 100 mls/hr 11/10/20 15:00 11/13/20 03:39 Sodium Chloride IVPB 100 mls 0300,1500 DILSHAD Administration Sodium Chloride 10 ml 11/11/20 09:00 11/13/20 08:36 Flush - Normal Saline 10 Ml Syringe IVF 10 ml Q12HR DILSHAD Administration Zinc Sulfate 220 mg 11/11/20 09:00 11/13/20 08:36 Zinc Sulfate 220 Mg Cap PO 220 mg DAILY DILSHAD Administration - Exam General Appearance: NAD, awake alert Eye: PERRL, anicteric sclera ENT: normocephalic atraumatic, no oropharyngeal lesions Neck: supple, symmetric, no JVD, no thyromegaly, no lymphadenopathy Heart: RRR, no murmur, no gallops, no rubs, normal peripheral pulses Respiratory: CTAB, no wheezes, no rales, no ronchi Gastrointestinal: soft, non-tender, non-distended, normal bowel sounds Neurological: cranial nerve grossly intact, normal sensation to touch Psychiatric: normal affect, normal behavior, A&O x 3 Hosp A/P (1) Acute respiratory failure with hypoxia Code(s): J96.01 - ACUTE RESPIRATORY FAILURE WITH HYPOXIA Status: Acute (2) Pneumonia due to COVID-19 virus Code(s): U07.1 - COVID-19; J12.82 - PNEUMONIA DUE TO CORONAVIRUS DISEASE 2019 Status: Acute - Plan 11/09/2020. Patient is admitted with COVID-19 pneumonia complicated by respiratory failure. We will continue supportive care with high flow nasal cannula. She is on steroid which I will continue as well. We will give her a dose of convalescent plasma. She does not meet criteria for remdesivir. 11/10/2020. Patient with COVID-19 pneumonia complicated by respiratory failure. She did receive convalescent plasma but was out of the window for remdesivir. I have started her on antibiotics and will send her sputum for culture and Gram stain. 11/11/2020. We will begin to wean her down on the high flow nasal cannula. Continue current care. 11/12/2020. Ms. Israel remains on a high flow. She does still get dyspneic even with changing position in bed and with conversation. We will likely still live on a high flow as I do not think she will be ready to wean down today. We will continue supportive care for now. We will continue current antibiotics, steroids, vitamin C and zinc sulfate. 11/13/2020. She is being slowly weaned down from the high flow nasal cannula. We will continue doing this. Hopefully she can be medically optimized for discharge home within the next 48 hours.
[2020-11-13] MEDS ORDERED: Famotidine/PF 20 mg/2ml Vial SLOW IVP SCH (13:45)
[2020-11-13] MEDS: Guaifenesin DM 100-10/5 ML UDCUP PO PRN (20:55)
[2020-11-14 07:38] LABS: #Lymphocytes 3.8 thou/uL (1.20-3.40); #Monocytes 0.7 thou/uL (0.11-0.59); #Neutrophils 6.6 thou/uL (1.40-6.50); %Basophils 0.4 % (0.0-1.0); %Eosinophils 0.3 % (0.0-10.0); %Lymphocytes 33.8 % (21.0-51.0); %Monocytes 6.6 % (0.0-10.0); %Neutrophils 58.8 % (42.0-75.0); Hemoglobin 14.2 g/dL (12.0-16.0); Mean Corpuscular HGB CONC 33.7 g/dL (32.0-36.0); Mean Corpuscular Hemoglobin 30.7 pg (27.0-31.0); Mean Corpuscular Volume 91.3 fL (78.0-98.0); Mean Platelet Volume 5.5 fL (7.4-10.4); Platelet Count 759 thou/uL (130-400); Red Blood Cell (RBC) Count 4.63 mill/uL (4.20-5.40); White Blood Cell (WBC) Count 11.2 thou/uL (4.8-10.8)
[2020-11-14 07:52] LABS: Anion Gap 15 mmol/L (10-20); BUN (Urea Nitrogen) 14 mg/dL (9.8-20.1); Calc. Creatinine Clearance 91 mL/min (70-130); Calcium 8.4 mg/dL (7.8-10.44); Carbon Dioxide 21 mmol/L (23-31); Chloride 105 mmol/L (98-107); Glucose 78 mg/dL (80-115); Potassium 3.6 mmol/L (3.5-5.1); Sodium 137 mmol/L (136-145)
[2020-11-14] MEDS: Ascorbic Acid 500 mg Chewable Tablet PO SCH (07:59)
[2020-11-14] MEDS: Cholecalciferol (Vitamin D3) 400 UNITS TAB PO SCH (07:59)
[2020-11-14] MEDS: Zinc Sulfate 220 MG CAP PO SCH (07:59)
[2020-11-14] MEDS: Enoxaparin Sodium 40 MG/0.4 ML SYRINGE SC SCH ×2 (08:00→21:03)
[2020-11-14] MEDS: Dexamethasone 4 mg/ml Vial SLOW IVP SCH (08:04)
[2020-11-14] MEDS ORDERED: Famotidine 20 MG TAB PO SCH (09:00)
[2020-11-14] MEDS ORDERED: Mag-Al Plus 1200 MG/1200 MG/120 MG/30 ML UDCUP PO PRN (12:49)
--- NOTE | 2020-11-14 12:51 | PDOC.HOSPP ---
- Subjective Encounter Date: 11/14/20 Encounter Time: 10:10 Subjective: Patient doing well she has some heartburn. She is little weak today.. No cough. She had a bowel movement on . She is tolerating her p.o. regular diet. [place]inamese-speaking only talked to her through the RN who speaks Surinamese. - Objective Vital Signs & Weight: Vital Signs (12 hours) Temp Pulse Resp BP Pulse Ox 11/14/20 08:54 95 11/14/20 07:30 98.8 F 70 20 110/71 96 11/14/20 04:00 97.7 F 73 20 95/60 94 L Weight Weight 120 lb I&O: 11/13/20 11/14/20 11/15/20 06:59 06:59 06:59 Intake Total 100 400 Output Total 500 Balance 100 -100 Result Diagrams: 11/14/20 07:10 11/14/20 07:10 Hospitalist ROS - Medication Medications: Active Medications Generic Name Dose Route Start Last Admin Trade Name Freq PRN Reason Stop Dose Admin Ascorbic Acid 1,000 mg 11/09/20 09:00 11/14/20 07:59 Ascorbic Acid 500 Mg Chewable Tablet PO 1,000 mg DAILY DILSHAD Administration Cholecalciferol 400 units 11/09/20 09:00 11/14/20 07:59 Cholecalciferol (Vitamin D3) 400 Units Tab PO 400 units DAILY DILSHAD Administration Dexamethasone 8 mg 11/09/20 09:00 11/14/20 08:04 Dexamethasone 4 Mg/Ml Vial SLOW IVP 8 mg DAILY DILSHAD Administration Enoxaparin Sodium 40 mg 11/09/20 21:00 11/14/20 08:00 Enoxaparin Sodium 40 Mg/0.4 Ml Syringe SC 40 mg 0900,2100 DILSHAD Administration Famotidine 20 mg 11/14/20 09:00 11/14/20 08:00 Famotidine 20 Mg Tab PO 20 mg BID DILSHAD Administration Guaifenesin/Dextromethorphan 15 ml 11/09/20 11:01 11/13/20 20:55 Guaifenesin Dm 100-10/5 Ml Udcup PO 15 ml Q4H PRN Administration Cough Doxycycline Hyclate 100 mg/ 100 mls @ 100 mls/hr 11/10/20 15:00 11/14/20 02:28 Sodium Chloride IVPB 100 mls 0300,1500 DILSHAD Administration Sodium Chloride 10 ml 11/11/20 09:00 11/14/20 08:04 Flush - Normal Saline 10 Ml Syringe IVF 10 ml Q12HR DILSHAD Administration Zinc Sulfate 220 mg 11/11/20 09:00 11/14/20 07:59 Zinc Sulfate 220 Mg Cap PO 220 mg DAILY DILSHAD Administration - Exam General Appearance: NAD, awake alert Eye: PERRL ENT: normocephalic atraumatic Neck: supple Heart: normal peripheral pulses Respiratory: normal chest expansion Gastrointestinal: soft, normal bowel sounds Neurological: cranial nerve grossly intact, no focal deficits Psychiatric: normal affect, normal behavior, A&O x 3 Hosp A/P - Plan Acute respiratory failure with hypoxia Code(s): J96.01 - ACUTE RESPIRATORY FAILURE WITH HYPOXIA Status: Acute (2) Pneumonia due to COVID-19 virus Code(s): U07.1 - COVID-19; J12.82 - PNEUMONIA DUE TO CORONAVIRUS DISEASE 2019 Status: Acute - Plan Status post convalescent plasma --She is on doxycycline dexamethasone vitamin C and zinc. --Wean her off the oxygen Generalized weakness due to Covid Ambulate as she can tolerate GERD --Protonix and MiraLAX as needed Physical therapy evaluation once she is able
[2020-11-14] MEDS ORDERED: Senokot S 8.6-50 MG TAB PO SCH (14:15)
[2020-11-14] MEDS ORDERED: Metamucil PACK PO SCH (14:15)
[2020-11-14] MEDS: Senokot S 8.6-50 MG TAB PO SCH (21:02)
[2020-11-14] MEDS: Guaifenesin DM 100-10/5 ML UDCUP PO PRN (21:23)
[2020-11-15] MEDS: Senokot S 8.6-50 MG TAB PO SCH ×2 (09:18→21:05)
[2020-11-15] MEDS: Zinc Sulfate 220 MG CAP PO SCH (09:18)
[2020-11-15] MEDS: Cholecalciferol (Vitamin D3) 400 UNITS TAB PO SCH (09:19)
[2020-11-15] MEDS: Ascorbic Acid 500 mg Chewable Tablet PO SCH (09:19)
[2020-11-15] MEDS: Dexamethasone 4 mg/ml Vial SLOW IVP SCH (09:19)
[2020-11-15] MEDS: Polyethylene Glycol 3350 17 GM Packet PO SCH (09:20)
[2020-11-15] MEDS: Enoxaparin Sodium 40 MG/0.4 ML SYRINGE SC SCH ×2 (09:20→21:04)
--- NOTE | 2020-11-15 14:52 | PDOC.HOSPP ---
- Subjective Encounter Date: 11/15/20 Encounter Time: 11:20 Subjective: Patient states that she still has some acid reflux issue. She had several bowel movement. When she just gets out of bed she is desatting. Currently 94% oxygen saturation with 3 L oxygen - Objective Vital Signs & Weight: Vital Signs (12 hours) Temp Pulse Resp BP Pulse Ox 11/15/20 08:51 94 L 11/15/20 07:46 97.9 F 81 20 96/58 L 94 L 11/15/20 05:40 98.0 F 82 18 105/63 92 L Weight Weight 120 lb I&O: 11/14/20 11/15/20 11/16/20 06:59 06:59 06:59 Intake Total 400 1220 Output Total 500 650 Balance -100 570 Result Diagrams: 11/14/20 07:10 11/14/20 07:10 Hospitalist ROS - Medication Medications: Active Medications Generic Name Dose Route Start Last Admin Trade Name Freq PRN Reason Stop Dose Admin Ascorbic Acid 1,000 mg 11/09/20 09:00 11/15/20 09:19 Ascorbic Acid 500 Mg Chewable Tablet PO 1,000 mg DAILY DILSHAD Administration Cholecalciferol 400 units 11/09/20 09:00 11/15/20 09:19 Cholecalciferol (Vitamin D3) 400 Units Tab PO 400 units DAILY DILSHAD Administration Dexamethasone 8 mg 11/09/20 09:00 11/15/20 09:19 Dexamethasone 4 Mg/Ml Vial SLOW IVP 8 mg DAILY DILSHAD Administration Enoxaparin Sodium 40 mg 11/09/20 21:00 11/15/20 09:20 Enoxaparin Sodium 40 Mg/0.4 Ml Syringe SC 40 mg 0900,2100 DILSHAD Administration Guaifenesin/Dextromethorphan 15 ml 11/09/20 11:01 11/14/20 21:23 Guaifenesin Dm 100-10/5 Ml Udcup PO 15 ml Q4H PRN Administration Cough Doxycycline Hyclate 100 mg/ 100 mls @ 100 mls/hr 11/10/20 15:00 11/15/20 03:35 Sodium Chloride IVPB 100 mls 0300,1500 DILSHAD Administration Pantoprazole Sodium 40 mg 11/15/20 09:00 11/15/20 09:19 Pantoprazole 40 Mg Tab PO 40 mg DAILY DILSHAD Administration Polyethylene Glycol 17 gm 11/15/20 09:00 11/15/20 09:20 Polyethylene Glycol 3350 17 Gm Packet PO 17 gm DAILY DILSHAD Administration Senna/Docusate Sodium 2 tab 11/14/20 21:00 11/15/20 09:18 Senokot S 8.6-50 Mg Tab PO 2 tab BID DILSHAD Administration Sodium Chloride 10 ml 11/11/20 09:00 11/15/20 09:20 Flush - Normal Saline 10 Ml Syringe IVF 10 ml Q12HR DILSHAD Administration Zinc Sulfate 220 mg 11/11/20 09:00 11/15/20 09:18 Zinc Sulfate 220 Mg Cap PO 220 mg DAILY DILSHAD Administration - Exam General Appearance: NAD, awake alert Eye: PERRL ENT: normocephalic atraumatic Neck: supple Heart: RRR Respiratory: CTAB, normal chest expansion Gastrointestinal: soft, normal bowel sounds Neurological: cranial nerve grossly intact, no focal deficits Musculoskeletal: generalized weakness Psychiatric: A&O x 3 Hosp A/P - Plan Acute respiratory failure with hypoxia Code(s): J96.01 - ACUTE RESPIRATORY FAILURE WITH HYPOXIA Status: Acute (2) Pneumonia due to COVID-19 virus Code(s): U07.1 - COVID-19; J12.82 - PNEUMONIA DUE TO CORONAVIRUS DISEASE 2019 Status: Acute - Plan Status post convalescent plasma --She is on doxycycline dexamethasone vitamin C and zinc. --Wean her off the oxygen Ambulate as she can tolerate GERD --Protonix and MiraLAX as needed Generalized weakness due to Covid Physical therapy evaluation may not be necessary as will try to ask her ambulate inside the room and will monitor her oxygen status.
[2020-11-15] MEDS: Doxycycline 100 MG CAP PO SCH (21:04)
[2020-11-15] MEDS: Guaifenesin DM 100-10/5 ML UDCUP PO PRN (21:25)
[2020-11-16] MEDS: Guaifenesin DM 100-10/5 ML UDCUP PO PRN ×2 (05:46→15:33)
[2020-11-16] MEDS: Senokot S 8.6-50 MG TAB PO SCH ×2 (09:25→20:52)
[2020-11-16] MEDS: Cholecalciferol (Vitamin D3) 400 UNITS TAB PO SCH (09:25)
[2020-11-16] MEDS: Dexamethasone 4 MG TAB PO SCH (09:25)
[2020-11-16] MEDS: Ascorbic Acid 500 mg Chewable Tablet PO SCH (09:25)
[2020-11-16] MEDS: Polyethylene Glycol 3350 17 GM Packet PO SCH (09:25)
[2020-11-16] MEDS: Enoxaparin Sodium 40 MG/0.4 ML SYRINGE SC SCH ×2 (09:25→20:44)
[2020-11-16] MEDS: Doxycycline 100 MG CAP PO SCH ×2 (09:25→20:44)
[2020-11-16] MEDS: Zinc Sulfate 220 MG CAP PO SCH (09:26)
--- NOTE | 2020-11-16 13:50 | PDOC.HOSPP ---
- Subjective Encounter Date: 11/16/20 Encounter Time: 12:28 Subjective: Patient is improving her sats 92% with 2 L oxygen by nasal cannula. Her blood pressure is systolic less than 90 this morning. - Objective Vital Signs & Weight: Vital Signs (12 hours) Temp Pulse Resp BP Pulse Ox 11/16/20 11:46 97.8 F 75 18 93/56 L 96 11/16/20 08:01 97.8 F 81 18 87/56 L 92 L 11/16/20 08:00 96 Weight Weight 120 lb I&O: 11/15/20 11/16/20 11/17/20 06:59 06:59 06:59 Intake Total 1220 1150 Output Total 650 Balance 570 1150 Result Diagrams: 11/14/20 07:10 11/14/20 07:10 Hospitalist ROS - Medication Medications: Active Medications Generic Name Dose Route Start Last Admin Trade Name Freq PRN Reason Stop Dose Admin Ascorbic Acid 1,000 mg 11/09/20 09:00 11/16/20 09:25 Ascorbic Acid 500 Mg Chewable Tablet PO 1,000 mg DAILY DILSHAD Administration Cholecalciferol 400 units 11/09/20 09:00 11/16/20 09:25 Cholecalciferol (Vitamin D3) 400 Units Tab PO 400 units DAILY DILSHAD Administration Dexamethasone 6 mg 11/16/20 09:00 11/16/20 09:25 Dexamethasone 4 Mg Tab PO 6 mg DAILY DILSHAD Administration Doxycycline Hyclate 100 mg 11/15/20 21:00 11/16/20 09:25 Doxycycline 100 Mg Cap PO 100 mg BID DILSHAD Administration Enoxaparin Sodium 40 mg 11/09/20 21:00 11/16/20 09:25 Enoxaparin Sodium 40 Mg/0.4 Ml Syringe SC 40 mg 09,2099 DILSHAD Administration Guaifenesin/Dextromethorphan 15 ml 11/09/20 11:01 11/16/20 05:46 Guaifenesin Dm 100-10/5 Ml Udcup PO 15 ml Q4H PRN Administration Cough Pantoprazole Sodium 40 mg 11/15/20 09:00 11/16/20 09:25 Pantoprazole 40 Mg Tab PO 40 mg DAILY DILSHAD Administration Polyethylene Glycol 17 gm 11/15/20 09:00 11/16/20 09:25 Polyethylene Glycol 3350 17 Gm Packet PO 17 gm DAILY DILSHAD Administration Senna/Docusate Sodium 2 tab 11/14/20 21:00 11/16/20 09:25 Senokot S 8.6-50 Mg Tab PO 2 tab BID DILSHAD Administration Sodium Chloride 10 ml 11/11/20 09:00 11/16/20 09:26 Flush - Normal Saline 10 Ml Syringe IVF Not Given Q12HR DILSHAD Zinc Sulfate 220 mg 11/11/20 09:00 11/16/20 09:26 Zinc Sulfate 220 Mg Cap PO 220 mg DAILY DILSHAD Administration - Exam General Appearance: NAD, awake alert Eye: PERRL ENT: normocephalic atraumatic Neck: supple Heart: RRR Respiratory: CTAB, normal chest expansion Gastrointestinal: soft, normal bowel sounds Neurological: no focal deficits Musculoskeletal: generalized weakness Psychiatric: normal affect, normal behavior, A&O x 3 Hosp A/P - Plan Acute respiratory failure with hypoxia Code(s): J96.01 - ACUTE RESPIRATORY FAILURE WITH HYPOXIA Status: Acute (2) Pneumonia due to COVID-19 virus Code(s): U07.1 - COVID-19; J12.82 - PNEUMONIA DUE TO CORONAVIRUS DISEASE 2019 Status: Acute - Plan Status post convalescent plasma --She is on doxycycline dexamethasone vitamin C and zinc. --Wean her off the oxygen Ambulate as she can tolerate GERD --Protonix and MiraLAX as needed Generalized weakness due to Covid Physical therapy evaluation may not be necessary as will try to ask her ambulate inside the room and will monitor her oxygen status. Hypertension--patient is not hypertensive in the past and she is not on any blood pressure medications. -Seems blood pressure is on the low side will give her gentle hydration -If she is able to ambulate without much distress of shortness of breath and i chest discomfort we will plan to discharge her tomorrow
[2020-11-16] MEDS ORDERED: Sodium Chloride 0.9% 1,000 ML IV SCH (14:00)
[2020-11-17] MEDS: Zinc Sulfate 220 MG CAP PO SCH (09:32)
[2020-11-17] MEDS: Doxycycline 100 MG CAP PO SCH ×2 (09:32→21:56)
[2020-11-17] MEDS: Ascorbic Acid 500 mg Chewable Tablet PO SCH (09:32)
[2020-11-17] MEDS: Dexamethasone 4 MG TAB PO SCH (09:32)
[2020-11-17] MEDS: Cholecalciferol (Vitamin D3) 400 UNITS TAB PO SCH (09:33)
[2020-11-17] MEDS: Enoxaparin Sodium 40 MG/0.4 ML SYRINGE SC SCH ×2 (09:33→21:56)
[2020-11-17] MEDS: Senokot S 8.6-50 MG TAB PO SCH ×2 (09:34→21:56)
[2020-11-17] MEDS: Polyethylene Glycol 3350 17 GM Packet PO SCH (09:34)
[2020-11-17] MEDS: Sodium Chloride 0.9% 1,000 ML IV SCH ×2 (09:37→20:00)
[2020-11-17] MEDS: Guaifenesin DM 100-10/5 ML UDCUP PO PRN (09:49)
--- NOTE | 2020-11-17 13:34 | PDOC.DS.DS ---
Provider Date of Admission: 11/08/20 21:07 Admitting Provider: Prieto Wagner MD Primary Care Physician: OUT OF TOWN Course Hospital Course: 35-year-old female presented with Acute respiratory failure with hypoxia Code(s): J96.01 - ACUTE RESPIRATORY FAILURE WITH HYPOXIA Status: Acute (2) Pneumonia due to COVID-19 virus Code(s): U07.1 - COVID-19; J12.82 - PNEUMONIA DUE TO CORONAVIRUS DISEASE 2019 Status: Acute - Plan Status post convalescent plasma --She is on doxycycline dexamethasone vitamin C and zinc. --Wean her off the oxygen Ambulate as she can tolerate GERD --Protonix and MiraLAX as needed Generalized weakness due to Covid Physical therapy evaluation may not be necessary as will try to ask her ambulate inside the room and will monitor her oxygen status. Stable to be discharged home today. Home health oxygen has been arranged. Decadron for 10 more days vitamin C and zinc prescribed Charge time over 30 minutes. Resuscitation Status: 11/08/20 22:18 Resuscitation Status Routine Resuscitation Status: FULL: Full Resuscitation Lab Results: 11/14/20 07:10 11/14/20 07:10 Microbiology - Entire Visit 11/12/20 04:40 Sputum Respiratory Culture - Final 11/08/20 17:24 Venous blood - Left Arm Blood Culture - Final NO GROWTH IN 5 DAYS 11/08/20 17:55 Venous blood - Right Hand Blood Culture - Final NO GROWTH IN 5 DAYS 11/11/20 05:55 Sputum Respiratory Culture - Final Vitals: Vital Signs (12 hours) Temp Pulse Resp BP Pulse Ox 11/17/20 12:07 97.8 F 75 18 110/67 94 L 11/17/20 08:00 98.5 F 81 16 89/55 L 95 11/17/20 04:00 98.2 F 62 18 95/63 95 Weight Weight 120 lb Physical Exam: The patient was seen and examined on the day of discharge. Psychiatric - other findings: This morning. She is participating in the physical therapy. Plan Prescriptions: Dexamethasone [Decadron] 6 mg PO DAILY 10 Days #10 tab Ascorbic Acid [Vitamin C] 1,000 mg PO DAILY 30 Days #30 tab Zinc Sulfate 220 mg PO DAILY 14 Days #14 cap Home Medications: Medication Instructions Recorded Confirmed Type Aspirin [Aspirin EC] 1 tablet PO DAILY 11/11/20 11/11/20 History Ascorbic Acid [Vitamin C] 1,000 mg PO DAILY 30 Days #30 tab 11/17/20 Rx Dexamethasone [Decadron] 6 mg PO DAILY 10 Days #10 tab 11/17/20 Rx Zinc Sulfate 220 mg PO DAILY 14 Days #14 cap 11/17/20 Rx Allergies: Penicillins Allergy (Verified 11/08/20 22:29) Activity:: Activity as Tolerated Nourishment:: Regular Diet Referrals: [facility]OUT OF [Primary Care Provider] - Disposition: HOME Quality CORE MEASURES:: N/A
[2020-11-18] MEDS: Guaifenesin DM 100-10/5 ML UDCUP PO PRN (02:19)
[2020-11-18] MEDS: Enoxaparin Sodium 40 MG/0.4 ML SYRINGE SC SCH (08:42)
[2020-11-18] MEDS: Doxycycline 100 MG CAP PO SCH (08:42)
[2020-11-18] MEDS: Zinc Sulfate 220 MG CAP PO SCH (08:42)
[2020-11-18] MEDS: Senokot S 8.6-50 MG TAB PO SCH (08:43)
[2020-11-18] MEDS: Cholecalciferol (Vitamin D3) 400 UNITS TAB PO SCH (08:43)
[2020-11-18] MEDS: Dexamethasone 4 MG TAB PO SCH (08:43)
[2020-11-18] MEDS: Ascorbic Acid 500 mg Chewable Tablet PO SCH (08:43)
[2020-11-18] MEDS: Polyethylene Glycol 3350 17 GM Packet PO SCH (08:44)
[2020-11-18 10:29] VITALS: BP 98/57; TEMP 97.8
== END 2020-11-18 11:19 | disposition home or self-care (01) | DRG 177 ==
LOC: ERS 17:03 → ERHOLD 21:07 → T4-B 11-09 01:03
PROVIDERS: ADMIT Student in an Organized Health Care Education/Training Program; ATTEND Internal Medicine
PROC: XW13325 Transfusion of Convalescent Plasma (Nonautologous) into Peripheral Vein, Percutaneous Approach, New Technology Group 5 (ICD-10-PCS; principal; 2020-11-09)
DX: U07.1 COVID-19 (principal); J96.01 Acute respiratory failure with hypoxia; J12.82 Pneumonia due to coronavirus disease 2019; E87.2 Acidosis; I10 Essential (primary) hypertension; Z88.0 Allergy status to penicillin; Z79.899 Other long term (current) drug therapy; Z79.82 Long term (current) use of aspirin; Z79.51 Long term (current) use of inhaled steroids; K21.9 Gastro-esophageal reflux disease without esophagitis
CPT/HCPCS: 36415; 36430; 71045; 74177; 80048; 80053; 81003; 82533; 82728; 83605; 83690; 83735; 84443; 85025; 85379; 86140; 86850; 86900; 86901; 87040; 87070; 87205; 93005; 96374; J1100; J1650; J3490; J8540; P9017; Q9967; S0028